=== PATIENT | male | born 1980 | race Caucasian/White ===

== ENCOUNTER 2018-01-15 07:40 | Emergency (ER) | payer BC ==
[~2018-01-15] VITALS: Ht 185.4 cm; Wt 86.2 kg
[2018-01-15 07:40] VITALS: BP 169/109
== END 2018-01-15 08:02 | disposition home or self-care (01) ==
LOC: ER 07:44
DX: K12.2 Cellulitis and abscess of mouth (principal); K21.9 Gastro-esophageal reflux disease without esophagitis; K50.90 Crohn's disease, unspecified, without complications; Z88.0 Allergy status to penicillin
CPT/HCPCS: A4606; Z7610